=== PATIENT | male | born 1935 | race Caucasian/White ===

== ENCOUNTER → 2018-11-20 | Day surgery (SDC) | payer MEDICARE, OTHER ==
[~2018-11-20] VITALS: Ht 177.8 cm; Wt 81.6 kg
[~2018-11-20] MED LIST: ASPIRIN 81 MG CHEW (CHILDREN'S ASA) PO ONE; ASPIRIN E.C. 81 MG (ECOTRIN) TAB PO SCH; ATORVASTATIN 80 MG (LIPITOR) TABLET PO SCH; ATROPINE INJECTION 1 MG/10 ML SYR (ABBOTT) ONE; EPTIFIBATIDE BOLUS 20 ML IV ONE; HEParin (CATH LAB) 1,000 ML IV ONE; HEParin 1000 UNIT/ML (10ML VIAL) FOR BOLUS ONE; HEParin DRIP 25000 UNIT/500ML 500 ML IV ONE; LIDOCAINE 1% INJ 20 ML 20 ML VIAL ONE; MIDAZOLAM 5 MG/5 ML (VERSED) VIAL ONE; NITRO DRIP 25000 MCG/D5W 250 ML IV ONE; NITROGLYCERIN 0.4 MG SL TABS BTL 25'S SL PRN; NS IV 1000 ML 1,000 ML IV SCH; NS IV 1000 ML 1,000 ML ONE; NS IV 1000 ML 3,000 ML ONE; PATIENT MAY USE OWN MEDS, ALL PO SCH; fentaNYL INJECTION 100 MCG/2 ML AMP ONE
[2018-11-20 14:30] LABS: BASOPHILS % (AUTO) 0 % (0-10); EOSINOPHILS # (AUTO) 0.4 10^3/uL (0.0-0.3); EOSINOPHILS % (AUTO) 3 % (0-10); HEMATOCRIT 46 % (40-54); HEMOGLOBIN 15.5 G/DL (13.3-17.7); LYMPHOCYTES # (AUTO) 4.7 X 10^3 (1.0-4.0); LYMPHOCYTES % (AUTO) 36 % (12-44); MEAN CORPUSCULAR HEMOGLOBIN 30 PG (25-34); MEAN CORPUSCULAR HGB CONC 34 G/DL (32-36); MEAN CORPUSCULAR VOLUME 88 FL (80-99); MEAN PLATELET VOLUME 10.5 FL (7.4-10.4); MONOCYTES # (AUTO) 1.1 X 10^3 (0.0-1.0); MONOCYTES % (AUTO) 9 % (0-12); NEUTROPHILS # (AUTO) 6.7 X 10^3 (1.8-7.8); NEUTROPHILS % (AUTO) 52 % (42-75); PLATELET COUNT 224 10^3/uL (130-400); RED CELL DISTRIBUTION WIDTH 13.8 % (10.0-14.5); WHITE BLOOD COUNT 12.9 10^3/uL (4.3-11.0)
[2018-11-20 14:35] VITALS: BP 155/90
--- NOTE | 2018-11-20 14:45 | ED Chest Pain ---
General Chief Complaint: Chest Pain Stated Complaint: CHEST PAIN Nursing Triage Note: THE PT IS ASSISTED TO THE ROOM BY WHEELCHAIR. NO DISTRESS IS SEEN ON ARRIVAL. NO DISTRESS IS SEEN ON ARRIVAL. SKIN IS W/D PINK. Nursing Sepsis Screen: No Definite Risk Source: patient Exam Limitations: no limitations History of Present Illness Date Seen by Provider: Nov 20, 2018 Time Seen by Provider: 14:16 Initial Comments Here with report of central chest discomfort that he describes as a pressure or ache. Started about 1 PM. States that it persisted so he thought he had a get checked out. Admits to having intermittent chest discomfort similar over the last couple of weeks. This seems to be associated with activity and that includes today. He was gardening earlier and this started afterwards. Denies nausea, vomiting or sweating. Timing/Duration: 1-3 hours Severity/Quality: moderate, aching, pressure Location: central Radiation: no radiation Activities at Onset: activity Prior CP/Workup: no prior cardiac workup Modifying Factors: worse with exercise; improves with rest ASA po PRODUCTION CONTROL CLERK: No NTG SL PRODUCTION CONTROL CLERK: No Associated Symptoms: No abdominal pain, No back pain, No diaphoresis, No dizziness, No fever/chills, No nausea/vomiting, No shortness of breath, No weakness Allergies and Home Medications Allergies Coded Allergies: No Known Drug Allergies (Unverified , 11/20/18) Patient Home Medication List Home Medication List Reviewed: Yes Review of Systems Review of Systems Constitutional: see HPI; No chills, No fever EENTM: No Symptoms Reported Respiratory: No Symptoms Reported Cardiovascular: See HPI, Chest Pain; Denies Edema, Denies Lightheadedness Gastrointestinal: Denies Diarrhea, Denies Nausea, Denies Vomiting Genitourinary: No Symptoms Reported Musculoskeletal: no symptoms reported Skin: no symptoms reported All Other Systems Reviewed Negative Unless Noted: Yes Past [id number]-[id number] Hx Past Med/Social Hx: Reviewed Nursing Past Med/Soc Hx Patient Social History Alcohol Use: Denies Use Recreational Drug Use: No Smoking Status: Never a Smoker Recent Foreign Travel: No Contact w/Someone Who Travel: No Recent Infectious Disease Expo: No Past Medical History Surgeries: Yes Eye Surgery Respiratory: No Cardiac: Yes High Cholesterol Neurological: No Genitourinary: No Gastrointestinal: No Musculoskeletal: No Endocrine: No HEENT: No Cancer: No Psychosocial: No Family Medical History Reviewed Nursing Family Hx Physical Exam Vital Signs Capillary Refill : Less Than 3 Seconds Height, Weight, BMI Height: 5'10.00" Weight: 180lbs. oz. [id number]; BMI Method:Estimated General Appearance: No Apparent Distress, WD/WN HEENT: PERRL/EOMI, TMs Normal Neck: Full Range of Motion, Non Tender, Supple Respiratory: Lungs Clear, Normal Breath Sounds Cardiovascular: Regular Rate, Rhythm, No Murmur Gastrointestinal: Non Tender, Soft Extremity: Normal Range of Motion, Non Tender Neurologic/Psychiatric: Alert, Oriented x3 Skin: Normal Color, Warm/Dry Progress/Results/Core Measures Results/Orders Lab Results Laboratory Tests Test 11/20/18 14:20 Range/Units White Blood Count 12.9 H 4.3-11.0 10^3/uL Red Blood Count 5.19 4.35-5.85 10^6/uL Hemoglobin 15.5 13.3-17.7 G/DL Hematocrit 46 40-54 % Mean Corpuscular Volume 88 80-99 FL Mean Corpuscular Hemoglobin 30 25-34 PG Mean Corpuscular Hemoglobin Concent 34 32-36 G/DL Red Cell Distribution Width 13.8 10.0-14.5 % Platelet Count 224 130-400 10^3/uL Mean Platelet Volume 10.5 H 7.4-10.4 FL Neutrophils (%) (Auto) 52 42-75 % Lymphocytes (%) (Auto) 36 12-44 % Monocytes (%) (Auto) 9 0-12 % Eosinophils (%) (Auto) 3 0-10 % Basophils (%) (Auto) 0 0-10 % Neutrophils # (Auto) 6.7 1.8-7.8 X 10^3 Lymphocytes # (Auto) 4.7 H 1.0-4.0 X 10^3 Monocytes # (Auto) 1.1 H 0.0-1.0 X 10^3 Eosinophils # (Auto) 0.4 H 0.0-0.3 10^3/uL Basophils # (Auto) 0.0 0.0-0.1 10^3/uL My Orders Orders - BRENDEN FERREIRA MD Cbc With Automated Diff (11/20/18 14:21) Magnesium (11/20/18 14:21) Chest 1 View, Ap/Pa Only (11/20/18 14:21) Ekg Tracing (11/20/18 14:21) Cardiac Profile 1 (11/20/18 14:21) Comprehensive Metabolic Panel (11/20/18 14:21) Myoglobin Serum (11/20/18 14:21) Protime With Inr (11/20/18 14:21) Partial Thromboplastin Time (11/20/18 14:21) O2 (11/20/18 14:21) Monitor-Rhythm Ecg Trace Only (11/20/18 14:) Lipid Panel (11/21/18 06:00) Ed Iv/Invasive Line Start (11/20/18 14:21) BNP (11/20/18 14:21) Fibrin Degradation Products (11/20/18 14:) Nitroglycerin 0.4 Mg Btl 25's (Nitrostat (11/20/18 14:30) Aspirin Chewable Tablet (Baby Aspirin Ch (11/20/18 14:30) Lidocaine 1% Inj 20 Ml (Xylocaine 1% Inj (11/20/18 14:26) Midazolam Injection (Versed Injection) (11/20/18 14:26) Blood Pressure Mean: 111 Progress Progress Note : Progress Note Seen and evaluated. Patient has EKG changes concerning for acute DC. I did talk with Dr. Jacques at 1422. 1424: After Georgie is on his way and is requesting Cardiac Sonographer team activation and to meet him in the emergency department. 1432: Cardiac Sonographer team here and being patient ready to go. 1436: Patient to the Cardiac Sonographer. I did discuss with patient and family regarding concerns and plan and they are in full agreement. Patient did receive aspirin 324 mg by mouth. Labs, EKG were done. Patient to Cardiac Sonographer prior to chest x-ray. Initial ECG Impression Date: Nov 20, 2018 Initial ECG Impression Time: 14:16 Initial ECG Rate: 72 Initial ECG Comparisson: No Previous ECG Available Comment Sinus rhythm with ischemia findings in diffuse leads. Question subtle ST elevation in aVR. Overall appears to be ischemic in nature. Discussed with sales recruiter who agrees. Departure Communication (Admissions) Time/Spoke to Admitting Phy: 14:22 Impression Primary Impression: Acute DC Qualified Codes: I21.9 - Acute myocardial infarction, unspecified Disposition: ADMITTED INPATIENT Condition: Stable Admissions Decision to Admit Reason: Admit from ER (General) Decision to Admit/Date: Nov 20, 2018 Time/Decision to Admit Time: 14:24 Departure-Patient Inst. Referrals: JAJA WOLFE DO (PCP) Primary Care Physician BRENDEN FERREIRA MD Nov 20, 2018 14:45
[2018-11-20 14:54] LABS: ALANINE AMINOTRANSFERASE 25 U/L (0-55); ALBUMIN 4.6 GM/DL (3.2-4.5); ALKALINE PHOSPHATASE 60 U/L (40-136); BILIRUBIN,TOTAL 1.1 MG/DL (0.1-1.0); BUN/CREATININE RATIO 10; CALCIUM 10.2 MG/DL (8.5-10.1); CARBON DIOXIDE 28 MMOL/L (21-32); CHLORIDE 105 MMOL/L (98-107); CREATININE SERUM 1.34 MG/DL (0.60-1.30); GFR ESTIMATED 51; GLUCOSE 128 MG/DL (70-105); MAGNESIUM 2.4 MG/DL (1.8-2.4); POTASSIUM 3.8 MMOL/L (3.6-5.0); SODIUM 141 MMOL/L (135-145); TOTAL PROTEIN 7.8 GM/DL (6.4-8.2)
[2018-11-20 14:56] LABS: INR 0.9 (0.8-1.4); PROTHROMBIN TIME PATIENT 12.7 SEC (12.2-14.7)
--- NOTE | 2018-11-20 15:50 | Cardiology History & Physical ---
HPI-Cardiology Cardiology Consultation Date of Consultation 11/20/18 Date of Admission Time Seen by Provider: 15:00 Indication: acute myocardial infarction HPI 83 years old gentleman with no known significant past history than hyperlipidemia, fairly active, started to have chest pain, described it as dull in nature in the retrosternal area, came into the emergency room and noted to have acute myocardial infarction with ST depression OR. He was having active chest pain. Given aspirin, I was called for evaluation, decided to proceed with emergency cardiac catheterization possible PTCA. Denied any similar episodes in the past but has been having some chest pain for the past few weeks PMH-Cardiology Surgeries Yes Respiratory No Cardiovascular Yes Neurological No Genitourinary No Gastrointestinal No Musculoskeletal No Endocrine No HEENT No Cancer No Psychosocial No Other PMHx hyperlipidemia Social History Patient Social History Marrital Status: Employed/Student: retired Alcohol Use: Denies Use Recreational Drug Use: No Smoking: Former smoker Recent Foreign Travel: No Contact w/other who traveled: No Recent Infectious Disease Expo: No Family Hx Other noncontributory to his current condition ROS-Cardiology Review of Systems General: No Chills, No Night Sweats, No Fatigue, No Malaise, No Appetite HEENT: No Head Aches, No Visual Changes, No Eye Pain, No Ear Pain, No Dysphasia , No Sinus Congestion, No Post Nasal Drip, No Sore Throat Pulmonary: Dyspnea; No Cough, No Pleuritic Chest Pain Cardiovascular: Chest Pain; No: Palpitations, Orthopnea, Paroxysmal Noc. Dyspnea, Edema, Lt Headedness Gastrointestinal: No: Nausea, Vomiting, Abdominal Pain, Diarrhea, Constipation , Melena, Hematochezia Genitourinary: No Dysuria, No Frequency, No Incontinence, No Hematuria, No Retention Musculoskeletal: No: neck pain, shoulder pain, arm pain, back pain, hand pain, leg pain, foot pain Neurological: No: Weakness, Numbness, Incoordination, Change in speech, Confusion, Seizures Home Medications & Allergies Allergies: Coded Allergies: No Known Drug Allergies (Unverified , 11/20/18) Exam-Cardiology Vital Signs Vital Signs Date Time Temp Pulse Resp B/P (MAP) Pulse Ox O2 Delivery O2 Flow Rate FiO2 11/20/18 14:35 98.0 71 18 155/90 (111) 96 Exam General Appearance: Alert, Oriented X3, Cooperative, No Acute Distress HEENT: Atraumatic, PERRLA Respiratory: Clear to Auscultation, Normal Air Movement Cardiovascular: Regular Rate, Normal S1, Normal S2, No Murmurs Abdominal: Normal Bowel Sounds, Soft, No Tenderness, No Hepatosplenomegaly, No Masses Extremities: No Clubbing, No Cyanosis, No Edema, Normal Pulses, No Tenderness/ Swelling Skin: No Rashes, No Breakdown, No Significant Lesion Neuro: Normal Gait, Normal Speech, Strength at 5/5 X4 Ext, Normal Tone, Sensation Intact Psych/Mental Status: Mental Status NL, Mood NL Results Labs Labs Laboratory Tests 11/20/18 14:20: White Blood Count 12.9H, Red Blood Count 5.19, Hemoglobin 15.5, Hematocrit 46, Mean Corpuscular Volume 88, Mean Corpuscular Hemoglobin 30, Mean Corpuscular Hemoglobin Concent 34, Red Cell Distribution Width 13.8, Platelet Count 224, Mean Platelet Volume 10.5H, Neutrophils (%) (Auto) 52, Lymphocytes (%) (Auto) 36 , Monocytes (%) (Auto) 9, Eosinophils (%) (Auto) 3, Basophils (%) (Auto) 0, Neutrophils # (Auto) 6.7, Lymphocytes # (Auto) 4.7H, Monocytes # (Auto) 1.1H, Eosinophils # (Auto) 0.4H, Basophils # (Auto) 0.0, Prothrombin Time 12.7, INR Comment 0.9, Activated Partial Thromboplast Time 34, D-Dimer 0.66H, Sodium Level 141, Potassium Level 3.8, Chloride Level 105, Carbon Dioxide Level 28, Anion Gap 8, Blood Urea Nitrogen 14, Creatinine 1.34H, Estimat Glomerular Filtration Rate 51, BUN/Creatinine Ratio 10, Glucose Level 128H, Calcium Level 10.2H, Corrected Calcium , Magnesium Level 2.4, Total Bilirubin 1.1H, Aspartate Amino Transf (AST/SGOT) 25, Alanine Aminotransferase (ALT/SGPT) 25, Alkaline Phosphatase 60, Myoglobin 132.7H, Troponin I 0.029H, B-Type Natriuretic Peptide 130.2H, Total Protein 7.8, Albumin 4.6H A/P-Cardiology Admission Diagnosis Acute non-ST elevation OR Coronary artery disease Hypertension Hyperlipidemia Admission Status: Inpatient Order (span 2 midnights) Reason for Inpatient Admission: acute myocardial infarction Intra-aortic balloon pump placement Assessment/Plan Acute non-ST elevation myocardial infarction, decided to proceed with emergency cardiac catheterization, given aspirin, heparin and Integrilin. Findings described below. Next Coronary artery disease status post emergency cardiac catheterization with emergency balloon angioplasty to the proximal/ostial LAD, had total occlusion of the LAD with collateral filling the distal LAD from the right coronary artery , after the balloon angioplasty. That the mid to distal LAD is chronically occluded and receiving collaterals from the diagonal artery and the right coronary artery I was able to open the LAD proximally and the diagonal artery with good flow. Still have some residual stenosis. Has severe stenosis at the proximal ramus intermedius mid circumflex and distal circumflex and first and second obtuse marginal branch and moderate disease in the right coronary artery with preserved left ventricular systolic function. I decided to stop with balloon angioplasty and proceed with intra-aortic balloon pump placement and arrange for transfer for evaluation for possible bypass surgery. Hypertension, monitor blood pressure Hyperlipidemia, started Lipitor 80 mg daily. Addendum on November 20, 2018 at 4 p.m. Patient underwent emergency angioplasty to the LAD with good result, intra- aortic balloon pump was placed, patient is stabilized and arrangement to transfer to [facility] for evaluation for CABG or multivessel stenting was made. Clinical Quality Measures AMI/AHF: ASA po Prior to arrival: No FRANCISCA MACARIO MD Nov 20, 2018 15:50
--- NOTE | 2018-11-20 15:59 | Cardiac Cath Report ---
Cardiac Cath Report Physician (s)/Baffle Mounter (s) Physician FRANCISCA MACARIO MD Pre-Procedure Diagnosis Pre-Procedure Diagnosis: acute myocardial infarction Post-Procedure Note Procedure Start Date: Nov 20, 2018 Name of Procedure: Left heart catheterization Left ventricular gram Aortic arch angiogram Intra-aortic balloon pump placement Findings/Procedure Note PROCEDURE NOTE: 83 years old gentleman with history of hyperlipidemia, admitted with acute myocardial infarction, non-ST elevation, decided to proceed with emergency cardiac catheterization After explaining the procedure to the patient, all pros and cons were explained , all questions were answered. The patient signed the consent and then he was placed on the cardiac catheterization laboratory. Groin was prepped SL fashion local anesthesia was used. Sheath placed in the Right femoral artery. Jasmina right and left catheter were used to access the coronary system. Pigtail was used to access the left ventricular cavity. Left ventriculogram was done Aortic arch angiogram was done next Patient was given 6000 units of heparin, double bolus Integrilin, FL guide was used, BMW wire was advanced with difficulty through the occluded LAD proximally advanced to the diagonal artery and balloon and possibly of the ostial LAD, reestablishment of the flow in the proximal LAD and diagonal artery, I was unable to cross over to the mid LAD that is chronically occluded with collateral filling that from the diagonal and right coronary artery, used multiple different wire without the ability, decided to proceed with balloon and to plastic of the ostial LAD and used 3.020 mm balloon with good results. At that point I proceeded with intra-aortic balloon pump placement and arranged for transfer for evaluation for possible bypass surgery FINDINGS: Hemodynamics LV 115/15, end-diastolic pressure of 15 Aorta 99/48 mean of 69 ANATOMY: Left Main as moderate disease Left Anterior Descending is totally occluded proximally successful balloon angioplasty to the proximal LAD with reestablishment of the flow in the proximal LAD and the first diagonal branch, the mid and distal LAD are occluded chronically with collaterals filling the LAD from the diagonal and the right coronary system Left Circumflex has multiple segment with severe stenosis the first ramus intermedius branch has severe ostial stenosis, mid circumflex has severe stenosis, first and second obtuse marginal branches has severe stenosis Right Coronory Artery is moderate in size with moderate disease at the midportion, giving collaterals to the LAD, the posterolateral branch is occluded LV Gram is normal in size with normal contractile 50 estimated ejection fraction 60 percent normal LV end-diastolic pressure Aorta evaluation done with aortic arch angiogram showing normal aortic arch, no dissection or aneurysm, normal innominate artery, subclavian and left carotid arteries Intra-aortic balloon pump placement, it was placed without complication, secured in place. CONCLUSION: 1. Acute myocardial infarction with multivessel coronary artery disease, total occlusion of the proximal/ostial LAD with successful balloon angioplasty to the proximal/ostial LAD that is supplying the large first diagonal branch. Total occlusion of the mid and distal LAD, the distal LAD is receiving collaterals from the right coronary system and the diagonal branch that appeared to be chronic total occlusion. 2. Severe stenosis at the proximal ramus intermedius branch 3. Severe stenosis at the first and second obtuse marginal branch and proper circumflex artery 4. Severe stenosis at the posterior lateral branch of the right coronary artery 5. Arrangement for intra-aortic balloon pump placement DISCUSSION AND RECOMMENDATION: I will continue maximizing medical therapy, arrangements to transfer to [facility] for evaluation for CABG Anesthesia Type: Conscious Sedation Estimated blood loss (mL): 30 ml Contrast Amount: 135 ml Total Radiation Dose: 1303 mGy Post-Procedure Diagnosis Post-operative diagnosis: acute myocardial infarction Coronary artery disease Hypertension Hyperlipidemia FRANCISCA MACARIO MD Nov 20, 2018 15:59
== END | disposition short-term general hospital (02) ==
LOC: EDUNIT# 14:05 → ER 14:06 → CATH 14:29
PROVIDERS: ATTEND Internal Medicine Cardiovascular Disease
DX: I21.4 Non-ST elevation (NSTEMI) myocardial infarction (principal); I25.10 Atherosclerotic heart disease of native coronary artery without angina pectoris; I10 Essential (primary) hypertension; E78.5 Hyperlipidemia, unspecified; Z87.891 Personal history of nicotine dependence; Z79.82 Long term (current) use of aspirin; Z79.899 Other long term (current) drug therapy
CPT/HCPCS: 33967; 36221; 36415; 80053; 83735; 83874; 83880; 84484; 85025; 85379; 85610; 85730; 93005; 93458

== ENCOUNTER → 2022-06-02 | Outpatient (CLI) | payer MEDICARE, OTHER | LOC: CARD 07:48 | PROVIDERS: ATTEND Internal Medicine Cardiovascular Disease | DX: I10 Essential (primary) hypertension (principal) | CPT/HCPCS: 93306 ==

== ENCOUNTER → 2022-06-22 | Outpatient (CLI) | payer MEDICARE, OTHER | LOC: CARD 08:30 | PROVIDERS: ATTEND Internal Medicine Cardiovascular Disease | DX: I10 Essential (primary) hypertension (principal) ==

== ENCOUNTER → 2023-01-05 | Outpatient (CLI) | payer MEDICARE, OTHER ==
[~2023-01-05] VITALS: Ht 175 cm; Wt 85.0 kg
[~2023-01-05] MED LIST changes: -ASPIRIN 81 MG CHEW (CHILDREN'S ASA) PO ONE; -ASPIRIN E.C. 81 MG (ECOTRIN) TAB PO SCH; -ATORVASTATIN 80 MG (LIPITOR) TABLET PO SCH; -ATROPINE INJECTION 1 MG/10 ML SYR (ABBOTT) ONE; +CATHETER FLUSH 10 ML SYR IVP PRN; -EPTIFIBATIDE BOLUS 20 ML IV ONE; -HEParin (CATH LAB) 1,000 ML IV ONE; -HEParin 1000 UNIT/ML (10ML VIAL) FOR BOLUS ONE; -HEParin DRIP 25000 UNIT/500ML 500 ML IV ONE; -LIDOCAINE 1% INJ 20 ML 20 ML VIAL ONE; -MIDAZOLAM 5 MG/5 ML (VERSED) VIAL ONE; -NITRO DRIP 25000 MCG/D5W 250 ML IV ONE; -NITROGLYCERIN 0.4 MG SL TABS BTL 25'S SL PRN; -NS IV 1000 ML 1,000 ML IV SCH; -NS IV 1000 ML 1,000 ML ONE; -NS IV 1000 ML 3,000 ML ONE; -PATIENT MAY USE OWN MEDS, ALL PO SCH; +REGADENOSON 0.4 MG/5 ML SYR (LEXISCAN) IV ONE; -fentaNYL INJECTION 100 MCG/2 ML AMP ONE
[2023-01-05 08:00] VITALS: BP 130/77
--- NOTE | 2023-01-05 12:29 | Cardiology Stress Test Report ---
Stress Test Report Date of Procedure/Referring: Date of Procedure: Jan 05, 2023 PCP Chente Massey DO Admitting Physician Admitting Physician: Attending Physician: Sheila Land Baseline Heart Rate: 55 Baseline Blood Pressure: Blood Pressure Systolic: 130 Blood Pressure Diastolic: 77 Baseline Vitals Vital Signs Date Time Temp Pulse Resp B/P (MAP) Pulse Ox O2 Delivery O2 Flow Rate FiO2 01/05/23 08:00 53 17 130/77 (94) Baseline EKG: Baseline EKG: NSR Summary After explaining the procedure to the patient, he signed a consent and then brought to the stress nuclear laboratory. Patient received 0.4 mg Lexiscan for stress test, ECG, heart rate and blood pressure were monitored continuously. Resting and stress dose of radio tracer were injected, imaging was acquired and reviewed in short axis, horizontal long axis and vertical long axis views. TID: 1.14 SSS: 5 SDS: 4 EF: 52 Patient tolerated Lexiscan well Extracardiac attenuation with the left arm being down during acquisition of the images, there is mild decrease uptake involving the anterior apical segment, overall stress images are better than rest images with no ischemia or infarction noted on SPECT images Normal left ventricular size, ejection fraction 52% Copy Copies To 1: CHENTE MASSEY BASHAR J MD Jan 05, 2023 12:29
== END ==
LOC: CARD 06:51
PROVIDERS: ATTEND Physician Assistant
DX: I65.23 Occlusion and stenosis of bilateral carotid arteries (principal)
CPT/HCPCS: 78452; 93017; A9502